=== PATIENT | female | born 1960 | race Caucasian/White ===

== ENCOUNTER 2018-11-20 10:35 | Emergency (ER) | payer BC ==
--- NOTE | 2018-11-20 11:15 | EDM.PDOC ---
ED HPI GENERAL MEDICAL PROBLEM - General Chief Complaint: Abdominal Pain Stated Complaint: BOWEL OBSTRUCTION Time Seen by Provider: 11/20/18 11:00 Source of Information: Reports: Patient History Limitations: Reports: No Limitations - History of Present Illness INITIAL COMMENTS - FREE TEXT/NARRATIVE: Patient states the last approximate 7:00 after eating dinner started having a left lower quadrant pain with nausea and vomited approximately twice since pain is a gnawing aching type pain that she has had multiple times with questionable small bowel obstructions that have been diagnosed clinically she states that she is able to alleviate most of the pain by vomiting and having bowel movements she states the symptoms started approximately 15-20 years ago after having a surgery and having an adhesion she has had 10 inches of her colon removed at that time she has had these signs and symptoms multiple times but has not had an NG tube placed or any surgeries to alleviate the problem her surgeon has typically told her that what he thought it was last type the signs and symptoms presented were 7 months ago but always in the left lower quadrant and usually self resolves she denies taking any medications for his pain is about a 6 out of 10 she has last seen her primary care provider about 6 months ago and last time she is seen the surgeon was about one year ago with a normal checkup Duration: Hour(s): Improves with: Reports: None Worsens with: Reports: None Associated Symptoms: Reports: No Other Symptoms Left Middle Abdomen Pain Score (Numeric/FACES): 5 - Related Data Allergies Allergy/AdvReac Type Severity Reaction Status Date / Time promethazine [From Phenergan] Allergy Cannot Verified 11/20/18 11:20 Remember Home Meds: Home Meds Butalbit/Acetamin/Caff/Codeine [Hryjdz-Cfcjvzmyuuy-Shjq-Codein] 1 cap PO Q6H PRN 08/20/16 [History] Calcium Carb & Citrate/Vit D3 [Calcium + D3 ER Tablet] 1 tab PO DAILY 08/20/16 [ History] Calcium Carb/D3/Magnesium/Zinc [Yonatan Mag Zinc + D Tablet] 1 tab PO DAILY [History] Cholecalciferol (Vitamin D3) [Vitamin D] 1,000 unit PO DAILY 08/20/16 [History] Cranberry 2 tab PO DAILY 08/20/16 [History] traMADol [Ultram] 50 mg PO Q6H PRN 08/20/16 [History] ED ROS GENERAL - Review of Systems Review Of Systems: See Below Constitutional: Reports: No Symptoms. Denies: Fever, Chills, Weakness, Fatigue HEENT: Reports: No Symptoms Respiratory: Reports: No Symptoms Cardiovascular: Reports: No Symptoms Endocrine: Reports: No Symptoms GI/Abdominal: Reports: Abdominal Pain, Nausea, Vomiting, Other (Patient states she has had a bowel movement today). Denies: Bloody Stool, Constipation, Diarrhea, Decreased Appetite, Difficulty Swallowing : Reports: No Symptoms Musculoskeletal: Reports: No Symptoms Skin: Reports: No Symptoms Neurological: Reports: No Symptoms, Headache, Other (Patient states she normally has headaches and asked if she can take her butalbital which helps). Denies: Confusion, Numbness, Tingling Psychiatric: Reports: No Symptoms Hematologic/Lymphatic: Reports: No Symptoms ED EXAM, GI/ABD - Physical Exam Exam: See Below Exam Limited By: No Limitations General Appearance: Alert, WD/WN, No Apparent Distress Eyes: Bilateral: Normal Appearance Throat/Mouth: Normal Inspection, Normal Lips, Normal Teeth, Normal Gums, Other ( mmm) Respiratory/Chest: No Respiratory Distress, Lungs Clear, Normal Breath Sounds, No Accessory Muscle Use Cardiovascular: Regular Rate, Rhythm, No Edema, No Gallop, No Murmur GI/Abdominal Exam: Soft, No Organomegaly, No Distention, Tender, Other (No active bowel sounds could be appreciated in all 4 quadrants patient has exquisite tenderness to palpation in the left lower quadrant she has no peritoneal signs or symptoms no guarding or rigidity no rebound). No: Normal Bowel Sounds, Non-Tender, Guarding, Rigid, Rebound Extremities: Normal Inspection, Normal Range of Motion Neurological: Alert, Oriented, CN II-XII Intact, Normal Cognition Psychiatric: Normal Affect, Normal Mood Skin Exam: Warm, Dry, Intact Course - Vital Signs Last Recorded V/S: Last Vital Signs Temp 37.2 C 11/20/18 11:15 Pulse 123 H 11/20/18 11:15 Resp 16 11/20/18 11:15 BP 119/64 11/20/18 11:15 Pulse Ox 97 11/20/18 11:15 - Orders/Labs/Meds Labs: Laboratory Tests 11/20/18 11/20/18 11/20/18 Range/Units 11:23 11:23 11:23 WBC 17.0 H (4.0-10.0) x10^3/uL RBC 5.60 H (4.00-5.50) x10^6/uL Hgb 17.2 H (12.0-16.0) g/dL Hct 50.6 H (33.0-47.0) % MCV 90.4 (78.0-93.0) fL MCH 30.7 (26.0-32.0) pg MCHC 34.0 (32.0-36.0) g/dL RDW Coeff of Jessica 12.8 (10.0-15.0) % Plt Count 291 (130-400) x10^3/uL Neut % (Auto) 86.6 H (50.0-80.0) % Lymph % (Auto) 7.6 L (25.0-50.0) % [place] % (Auto) 5.5 (2.0-11.0) % Eos % (Auto) 0.1 (0.0-4.0) % Baso % (Auto) 0.2 (0.2-1.2) % Sodium 141 (136-145) mmol/L Potassium 3.9 (3.5-5.1) mmol/L Chloride 100 (98-107) mmol/L Carbon Dioxide 31 (21-32) mmol/L Anion Gap 13.9 (10-20) mmol/L BUN 20 H (7-18) mg/dL Creatinine 1.0 (0.55-1.02) mg/dL Est Cr Clr Drug Dosing TNP Estimated GFR (MDRD) 57 Glucose 129 H (74-106) mg/dL Lactic Acid 1.1 (0.4-2.0) mmol/L Calcium 9.9 (8.5-10.1) mg/dL Meds: Medications Discontinued Medications Generic Name Dose Route Start Last Admin Trade Name Freq PRN Reason Stop Dose Admin Ketorolac Tromethamine 60 mg 11/20/18 11:18 11/20/18 11:32 Toradol IM 11/20/18 11:19 60 mg ONETIME ONE Administration Ondansetron HCl 4 mg 11/20/18 11:18 11/20/18 11:29 Zofran IM 11/20/18 11:19 4 mg ONETIME ONE Administration - Re-Assessments/Exams Free Text/Narrative Re-Assessment/Exam: 11/20/18 11:15 CBC BMP lactic acid acute abdomen series was ordered considering the presentation of this patient no active bowel sounds could be appreciated depending on abdominal series results on the CT this patient's abdomen and pelvis Free Text/Narrative Re-Assessment/Exam: 11/20/18 13:47 X-ray report reveals air-fluid levels within limits a few loops of small bowel without definitive evidence obstruction could possibly be enteritis per radiology The patient is noted to have a white count of 17.0 spoke with patient in regards to CT scan of abdomen patient states that she feels better still has some mild nausea but pain has decreased down to about a 3 or 4 patient wishes to go home due to the fact that she lives approximately 2 hours. Has a local hospital within a 18 miles of her house says if anything gets worse she will go to her local hospital explained the risks versus benefits of CT scan patient still wishes to go home and understands need for follow-up gives verbal understanding along with her need for follow-up if signs and symptoms get worse or change the patient will get a take home pack of Zofran 4 mg by mouth every 4-6 hours as needed 11/20/18 13:50 Secondary to the white count of 17,000 and the possibility of enteritis with exam of pain in the left lower quadrant all cover her with Cipro 500 mg 1 by mouth every 12 hours 10 days and Flagyl 500 mg 1 by mouth every 12 hours 10 days and have her follow-up Wednesday or Wednesday with her primary care provider Patient has been afebrile and normal vital signs since being here no signs or symptoms of infection or sepsis Departure - Departure Time of Disposition: 13:50 Disposition: Home, Self-Care 01 Condition: Good Clinical Impression: Abdominal pain, Nausea, Enteritis - Discharge Information Referrals: Connor Humphrey MD [Primary Care Provider] - Forms: ED Department Discharge - Problem List & Annotations (1) Abdominal pain SNOMED Code(s): 08418950 Code(s): R10.9 - UNSPECIFIED ABDOMINAL PAIN Status: Acute Current Visit: Yes (2) Nausea SNOMED Code(s): 253988374 Code(s): R11.0 - NAUSEA Status: Acute Current Visit: Yes - Assessment/Plan Plan: The patient will be covered with Cipro and Flagyl by mouth 1 by mouth every 12 hours 10 days secondary to possibility of enteritis and diverticulitis patient will also be given Zofran ODT 1 by mouth every 4-6 hours #30 patient was instructed to increase fluids and take stool softener one every 12 hours 3 days and anything changes either return to this emergency room or local hospital emergency room
[2018-11-20 11:16] VITALS: BP 119/64
[2018-11-20] MEDS ORDERED: Ondansetron 4 MG/2 ML SDV IM ONE (11:18)
[2018-11-20] MEDS ORDERED: Ketorolac 60 MG/2 ML SDV IM ONE (11:18)
[2018-11-20 11:40] LABS: CHLORIDE,CL 100 mmol/L (98-107); SODIUM,NA 141 mmol/L (136-145)
[2018-11-20 11:43] LABS: ANION GAP 13.9 mmol/L (10-20)
--- NOTE | 2018-11-20 13:18 | CR ---
[id number] RAD/RAD Abdomen Upright EXAM: RAD Abdomen Upright INDICATION: ABDOMEN PAIN,RULE OUT SBO. COMPARISON: None. DISCUSSION: Limited evaluation of this single view does not evaluate the pelvis. There are a few air-fluid levels seen within the small bowel. No definite evidence of obstruction. No free fluid. IMPRESSION: Air-fluid levels within a few loops of small bowel without definite evidence of obstruction. This could be seen with enteritis. Additional views could be considered for more complete evaluation. Anthony Bermeo DO 11/20/18 1317 Thank you for allowing us to participate in the care of your patient.
[2018-11-20] MEDS ORDERED: Take Home: Ondansetron 4 MG Tab.DIS, 2 Tab Pack PO ONE (13:51)
[2018-11-20] MEDS ORDERED: Ciprofloxacin 500 MG Tab PO ONE (13:52)
[2018-11-20] MEDS ORDERED: Take Home: Ciprofloxacin 500 MG Tab, 2 Tab Pack PO ONE (13:55)
[2018-11-20] MEDS ORDERED: Take Home: metroNIDAZOLE 500 MG Tab, 4 Tab Pack PO ONE (13:56)
[2018-11-20] MEDS ORDERED: metroNIDAZOLE 500 MG Tab PO SCH (14:00)
== END 2018-11-20 14:15 | disposition home or self-care (01) ==
LOC: VM.ED 10:35
DX: K52.9 Noninfective gastroenteritis and colitis, unspecified (principal); Z79.899 Other long term (current) drug therapy; Z88.8 Allergy status to other drugs, medicaments and biological substances
CPT/HCPCS: 36415; 74018; 80048; 83605; 85025; 96372; 99284-25; A9270-GY; J1885; J2405